=== PATIENT | female | born 1980 ===

== ENCOUNTER 2018-02-03 13:04 | Emergency (ER) | payer BC, OTHER ==
[2018-02-03 13:28] VITALS: BP 134/75
--- NOTE | 2018-02-03 14:11 | UC ---
Throat Pain/Nasal Rohit HPI - HPI Summary HPI Summary: cough x 2 days nasal congestion , pnd, sore throat. no fever, no chills cough is productive with yellow sputum - History of Current Complaint Chief Complaint: UCRespiratory Stated Complaint: COUGH,ROBERTO Time Seen by Provider: 02/03/18 13:20 Hx Obtained From: Patient Hx Last Menstrual Period: on depo inj ?: No Onset/Duration: Gradual Onset, Lasting Days - 2, Still Present Severity: Moderate Pain Intensity: 7 Pain Scale Used: 0-10 Numeric Cough: Productive Associated Signs & Symptoms: Positive: Nasal Discharge. Negative: FB Sensation , Drooling, Wheezing, Hoarseness, Sinus Discomfort, Fever, Vomiting, Rash - Allergies/Home Medications Allergies/Adverse Reactions: Allergies Allergy/AdvReac Type Severity Reaction Status Date / Time albuterol [From Ventolin HFA] Allergy Hives Verified 02/03/18 13:23 diazepam Allergy Hives Verified 02/03/18 13:23 Sulfa (Sulfonamide Allergy Hives Verified 02/03/18 13:23 Antibiotics) tramadol Allergy See Comment Verified 02/03/18 13:23 Home Medications: Home Medications Pnv No.95/Ferrous Fum/Folic AC [ Tablet] 1 tab DAILY 02/03/18 [History Confirmed 02/03/18] Polyethylene Glycol 3350* [Miralax*] 1 packet DAILY 02/03/18 [History Confirmed 02/03/18] medroxyPROGESTERone ACETATE* [DEPO-Provera*] 1 syringe ONCE 02/03/18 [History Confirmed 02/03/18] PMH/Surg Hx/FS Hx/Imm Hx Previously Healthy: Yes - Surgical History Surgical History: Yes Surgery Procedure, Year, and Place: ovarian cyst 2006 - Family History Known Family History: Negative: Diabetes - Social History Alcohol Use: None Substance Use Type: None Smoking Status (MU): Never Smoked Tobacco Review of Systems All Other Systems Reviewed And Are Negative: Yes Constitutional: Positive: Negative Skin: Positive: Negative Eyes: Positive: Negative ENT: Positive: Sore Throat, Nasal Discharge Respiratory: Positive: Cough Cardiovascular: Positive: Negative Is Patient Immunocompromised?: No Physical Exam Triage Information Reviewed: Yes Appearance: Well-Appearing, No Pain Distress, Obese Vital Signs: Initial Vital Signs Temp 98.4 F 02/03/18 13:23 Pulse 72 02/03/18 13:23 Resp 16 12/18/18 13:23 BP 134/75 02/03/18 13:23 Pulse Ox 100 02/03/18 13:23 Vital Signs Reviewed: Yes Eye Exam: Normal Eyes: Positive: Conjunctiva Clear ENT: Positive: Normal ENT inspection, Hearing grossly normal, Pharyngeal erythema, Nasal congestion, Nasal drainage, TMs normal Neck: Positive: Supple, Nontender, No Lymphadenopathy Respiratory: Positive: Chest non-tender, Lungs clear, Normal breath sounds, No respiratory distress Cardiovascular: Positive: RRR, No Murmur, Pulses Normal Musculoskeletal Exam: Normal Skin Exam: Normal Throat Pain/Nasal Course/Dx - Differential Dx/Diagnosis Provider Diagnosis: Viral bronchitis Discharge - Sign-Out/Discharge Documenting (check all that apply): Patient Departure All imaging exams completed and their final reports reviewed: No Studies - Discharge Plan Condition: Stable Disposition: HOME Patient Education Materials: Acute Bronchitis (ED) Referrals: No Primary Care Phys,NOPCP [Primary Care Provider] - 7 Days Additional Instructions: viral illness cont. with rest, increase fluid, Tylenol as needed for pain or fever follow up with your pcp as need in 7 days if not better - Billing Disposition and Condition Condition: STABLE Disposition: Home
== END 2018-02-03 14:02 | disposition home or self-care (01) ==
LOC: UCCORT 13:04
DX: J20.8 Acute bronchitis due to other specified organisms (principal); Z88.1 Allergy status to other antibiotic agents; Z88.8 Allergy status to other drugs, medicaments and biological substances
CPT/HCPCS: 87651; 99211; G0463